=== PATIENT | female | born 1995 | race Caucasian/White ===

== ENCOUNTER 2023-08-14 04:56 | Inpatient (IN) | payer BC ==
[2023-08-14] MEDS ORDERED: Butorphanol 1 MG/ML SDV IVPUSH PRN (09:33)
[2023-08-14] MEDS ORDERED: Carboprost Tromethamine 250 MCG/1 mL Vial IM PRN (09:33)
[2023-08-14] MEDS ORDERED: Misoprostol 200 MCG Tab PO PRN (09:33)
[2023-08-14] MEDS ORDERED: Tranexamic Acid IN NACL,ISO-OS 1,000 MG in Premix Bag 1 BAG IV PRN ×2 (09:33)
[2023-08-14] MEDS ORDERED: Water For Irrigation,Sterile 1,000 ML Container IRR PRN (09:33)
[2023-08-14] MEDS ORDERED: Sodium Chloride 0.9% 20 ML SDV IV PRN (09:33)
[2023-08-14] MEDS ORDERED: Sodium Chloride 0.9% 2.5 ML Syringe FLUSH PRN (09:33)
[2023-08-14] MEDS ORDERED: Lidocaine 1% 50 ML MDV INJECT PRN (09:33)
[2023-08-14] MEDS ORDERED: Sodium Chloride 0.9% 10 ML Syringe FLUSH PRN (09:33)
[2023-08-14] MEDS ORDERED: Ondansetron 4 MG/2 ML SDV IVPUSH PRN (09:33)
[2023-08-14] MEDS ORDERED: Methylergonovine 0.2 MG/1 ML Amp IM PRN (09:33)
[2023-08-14] MEDS ORDERED: Ampicillin 2 GM in Sodium Chloride 0.9% 100 ML IV ONE (09:33)
[2023-08-14] MEDS ORDERED: Lactated Ringers 1,000 ML IV SCH (09:45)
[2023-08-14] MEDS ORDERED: Oxytocin/0.9 % Sodium Chloride 30 UNIT/500 ML BAG IV SCH ×2 (09:45→17:00)
[2023-08-14] MEDS ORDERED: Phenylephrine HCl 0.5 MG/5 ML AMP ONE (10:41)
[2023-08-14] MEDS ORDERED: Dexmedetomidine 200 MCG/2 ML SDV ONE (10:41)
[2023-08-14] MEDS ORDERED: Bupivacaine 0.5% 10 ML SDV ONE (10:42)
[2023-08-14] MEDS ORDERED: Ropivacaine/PF 400 MG/200 ML PCA ONE (10:42)
[2023-08-14] MEDS ORDERED: Phenylephrine HCl 0.5 MG/5 ML AMP IVPUSH PRN (10:52)
[2023-08-14] MEDS ORDERED: ePHEDrine 50 MG/ML SDV IVPUSH PRN ×2 (10:52)
[2023-08-14 10:54] LABS: HEMOGLOBIN 12.8 g/dL (12.0-16.0); MEAN CORPUSCULAR HEMOGLOBIN 30.6 pg (27.0-32.0); MEAN CORPUSCULAR HGB CONC 33.7 g/dL (31.0-37.0); MEAN CORPUSCULAR VOLUME 90.9 fL (80.0-98.0); MEAN PLATELET VOLUME 9.2 fL (7.40-12.00); RED BLOOD CELL COUNT 4.18 M/uL (4.30-5.90); WHITE BLOOD CELL COUNT,WBC 19.11 K/uL (4.0-11.0)
[2023-08-14] MEDS ORDERED: Ropivacaine HCl/PF 400 MG in Premix Bag 1 BAG EPIDUR SCH (11:00)
[2023-08-14] MEDS: Ampicillin 1 GM in Sodium Chloride 0.9% 50 ML IV SCH ×2 (14:35→18:47)
[2023-08-14] MEDS ORDERED: Terbutaline 1 MG/ML SDV SUBCUT PRN (16:46)
[2023-08-14] MEDS ORDERED: Misoprostol 25 MCG (1/4 of 100 MCG) Tab VAG PRN ×2 (16:46)
[2023-08-14] MEDS ORDERED: Lanolin 100% Cream 7 GM Tube TOP PRN (21:02)
[2023-08-14] MEDS ORDERED: Witch Hazel Medicated Pads 40/Jar TOP PRN (21:02)
[2023-08-14] MEDS ORDERED: Benzocaine/Menthol 20%-0.5% Spray 78 GM Cannister TOP PRN (21:02)
[2023-08-14] MEDS ORDERED: Docusate Sodium 100 MG Cap PO PRN (21:02)
[2023-08-14] MEDS ORDERED: Bisacodyl 10 MG Supp RECTAL PRN (21:02)
[2023-08-14] MEDS ORDERED: Acetaminophen 500 MG Tab PO PRN ×2 (21:02)
[2023-08-14] MEDS ORDERED: Ibuprofen 800 MG Tab PO PRN (21:02)
[2023-08-14] MEDS ORDERED: oxyCODONE 5 MG Tab PO PRN (21:02)
[2023-08-14] MEDS ORDERED: Ibuprofen 400 MG Tab PO PRN (21:02)
[2023-08-14 22:07] LABS: PH,UMBILICAL ARTERIAL 7.167 (7.18-7.38); PH,UMBILICAL VENOUS 7.301 (7.25-7.45)
[2023-08-15 05:45] LABS: HEMATOCRIT 31.7 % (36.0-46.0); HEMOGLOBIN 10.5 g/dL (12.0-16.0)
[2023-08-16] MEDS ORDERED: Measles, Mumps & Rubella Vaccine 0.5 ML SDV SUBCUT ONE (10:06)
== END 2023-08-16 22:00 | disposition home or self-care (01) | DRG 560 ==
LOC: MW.OBCHECK 04:56 → MW.OB 04:58 → MW.OBCHECK 19:29 → MW.OB 19:30 → OBSVTOIN 20:18 → MW.OB 08-15 08:59
PROVIDERS: ADMIT Obstetrics & Gynecology; ATTEND Obstetrics & Gynecology
PROC: 10E0XZZ Delivery of Products of Conception, External Approach (ICD-10-PCS; principal; 2023-08-14)
PROC: 0HQ9XZZ Repair Perineum Skin, External Approach (ICD-10-PCS; 2023-08-14)
PROC: 3E0R3BZ Introduction of Anesthetic Agent into Spinal Canal, Percutaneous Approach (ICD-10-PCS; 2023-08-14)
PROC: 00HU33Z Insertion of Infusion Device into Spinal Canal, Percutaneous Approach (ICD-10-PCS; 2023-08-14)
PROC: 3E0234Z Introduction of Serum, Toxoid and Vaccine into Muscle, Percutaneous Approach (ICD-10-PCS; 2023-08-14)
DX: O48.0 Post-term pregnancy (principal); O42.02 Full-term premature rupture of membranes, onset of labor within 24 hours of rupture; Z37.0 Single live birth; O99.824 Streptococcus B carrier state complicating childbirth; O70.0 First degree perineal laceration during delivery; O77.0 Labor and delivery complicated by meconium in amniotic fluid; Z3A.40 40 weeks gestation of pregnancy; Z23 Encounter for immunization
CPT/HCPCS: 01967; 36415; 51702; 59025; 59409; 82803; 85014; 85018; 85027; 86592; 86850; 86900; 86901; 90471; 90707; A9270-GY; J0290; J2371; J2590; J2795; J3490

== ENCOUNTER 2024-11-27 08:43 | Inpatient (IN) | payer BC ==
[2024-11-27] MEDS ORDERED: Lidocaine 1% 50 ML MDV INJECT PRN (08:59)
[2024-11-27] MEDS ORDERED: Sodium Chloride 0.9% 10 ML Syringe FLUSH PRN (08:59)
[2024-11-27] MEDS ORDERED: Methylergonovine 0.2 MG/1 ML Amp IM PRN ×2 (08:59→14:39)
[2024-11-27] MEDS ORDERED: Tranexamic Acid in NACL,ISO-OS 1,000 MG in Premix Bag 1 BAG IV PRN (08:59)
[2024-11-27] MEDS ORDERED: Carboprost Tromethamine 250 MCG/1 mL Vial IM PRN (08:59)
[2024-11-27] MEDS ORDERED: Butorphanol 2 MG/ML SDV IVPUSH PRN (08:59)
[2024-11-27] MEDS ORDERED: Misoprostol 200 MCG Tab PO PRN (08:59)
[2024-11-27] MEDS ORDERED: Sodium Chloride 0.9% 2.5 ML Syringe FLUSH PRN (08:59)
[2024-11-27] MEDS ORDERED: Sodium Chloride 0.9% 20 ML SDV IV PRN (08:59)
[2024-11-27] MEDS ORDERED: Water For Irrigation,Sterile 1,000 ML Container IRR PRN (08:59)
[2024-11-27] MEDS ORDERED: Lactated Ringers 1,000 ML IV SCH (09:00)
[2024-11-27] MEDS ORDERED: Ampicillin 2 GM Vial ONE (09:03)
[2024-11-27] MEDS: Lactated Ringers 1,000 ML IV SCH (09:10)
[2024-11-27] MEDS: Ampicillin 2 GM in Sodium Chloride 0.9% 100 ML IV ONE (09:10)
[2024-11-27 09:32] LABS: HEMATOCRIT 34.5 % (37.0-47.0); HEMOGLOBIN 11.5 g/dL (12.0-16.0); MEAN CORPUSCULAR HEMOGLOBIN 27.8 pg (28.0-32.0); MEAN CORPUSCULAR HGB CONC 33.3 g/dL (32.0-36.0); MEAN CORPUSCULAR VOLUME 83.3 fL (83.0-99.0); MEAN PLATELET VOLUME 9.1 fL (9.4-12.3); PLATELET COUNT,PLT 335 K/uL (150-400); RED BLOOD CELL COUNT 4.14 M/uL (4.10-5.30); WHITE BLOOD CELL COUNT,WBC 14.63 K/uL (3.9-11.3)
[2024-11-27] MEDS ORDERED: Phenylephrine HCl In 0.9% NaCl 1 MG/10 ML Syringe IVPUSH PRN (10:04)
[2024-11-27] MEDS ORDERED: ePHEDrine 50 MG/ML SDV IVPUSH PRN (10:04)
[2024-11-27] MEDS ORDERED: dexmedeTOMIDine HCl 200 MCG/2 ML SDV EPIDUR SCH (10:15)
[2024-11-27] MEDS: Ampicillin 1 GM in Sodium Chloride 0.9% 50 ML IV SCH (13:07)
[2024-11-27] MEDS: Ropivacaine HCl/PF 400 MG in Premix Bag 1 BAG EPIDUR SCH (13:20)
[2024-11-27] MEDS ORDERED: Misoprostol 200 MCG Tab RECTAL PRN (14:39)
[2024-11-27 15:16] LABS: PH,UMBILICAL ARTERIAL 7.185 (7.18-7.38); PH,UMBILICAL VENOUS 7.346 (7.25-7.45)
[2024-11-27] MEDS: Oxytocin/0.9 % Sodium Chloride 30 UNIT/500 ML BAG IV ONE (15:19)
[2024-11-27] MEDS: Benzocaine/Menthol 20%-0.5% Spray 78 GM Cannister TOP PRN (16:10)
[2024-11-27] MEDS: Witch Hazel Medicated Pads 40/Jar TOP PRN (16:10)
[2024-11-27] MEDS: Docusate Sodium 100 MG Cap PO PRN (16:11)
[2024-11-27] MEDS: Acetaminophen 500 MG Tab PO PRN (16:11)
[2024-11-27] MEDS: Ibuprofen 800 MG Tab PO PRN (16:11)
[2024-11-27] MEDS: Lanolin 100% Cream 7 GM Tube TOP PRN (16:11)
[2024-11-28 06:12] LABS: HEMATOCRIT 32.2 % (37.0-47.0); HEMOGLOBIN 10.5 g/dL (12.0-16.0)
[2024-11-28] MEDS: Prenatal Multivitamin with Calcium/Folic Acid/Iron Tab PO SCH (09:44)
== END 2024-11-28 18:20 | disposition still patient (30) | DRG 560 ==
LOC: MW.OBCHECK 08:43 → MW.OB 08:43 → MW.OBCHECK 14:51 → MW.OB 15:07 → OBSVTOIN 15:07 → MW.OB 15:08
PROVIDERS: ADMIT Obstetrics & Gynecology; ATTEND Obstetrics & Gynecology
PROC: 10E0XZZ Delivery of Products of Conception, External Approach (ICD-10-PCS; principal; 2024-11-27)
PROC: 10907ZC Drainage of Amniotic Fluid, Therapeutic from Products of Conception, Via Natural or Artificial Opening (ICD-10-PCS; 2024-11-27)
PROC: 3E0R3BZ Introduction of Anesthetic Agent into Spinal Canal, Percutaneous Approach (ICD-10-PCS; 2024-11-27)
PROC: 00HU33Z Insertion of Infusion Device into Spinal Canal, Percutaneous Approach (ICD-10-PCS; 2024-11-27)
DX: O99.824 Streptococcus B carrier state complicating childbirth (principal); Z37.0 Single live birth; Z3A.39 39 weeks gestation of pregnancy
CPT/HCPCS: 01967; 36415; 59025; 59409; 82803; 85014; 85018; 85027; 86592; 86850; 86900; 86901; A9270-GY; J0290; J2590; J2795; J3490; J7120